=== PATIENT | male | born 1990 | race Caucasian/White ===

== ENCOUNTER 2019-12-23 00:34 | Emergency (ER) | payer SELFPAY ==
[~2019-12-23] VITALS: Ht 177.8 cm; Wt 100.0 kg
[~2019-12-23 00:34] MED LIST: LORTAB 7.5/5001 TAB PO
[2019-12-23 00:41] VITALS: BP 126/75; TEMP 97.7
[2019-12-23 01:50] VITALS: PULSE 70
== END 2019-12-23 01:50 | disposition home or self-care (01) ==
LOC: COL.ER 00:34
DX: T15.02XA Foreign body in cornea, left eye, initial encounter (principal); F17.210 Nicotine dependence, cigarettes, uncomplicated; X58.XXXA Exposure to other specified factors, initial encounter